=== PATIENT | male | born 1985 | race African-American/Black ===

== ENCOUNTER 2018-05-17 10:08 | Emergency (ER) | payer OTHER ==
[~2018-05-17] VITALS: Ht 180.3 cm; Wt 78.2 kg
[2018-05-17 10:24] VITALS: BP 129/73
== END 2018-05-17 12:29 | disposition home or self-care (01) ==
LOC: ED 10:08
DX: J02.9 Acute pharyngitis, unspecified (principal)

== ENCOUNTER → 2020-07-14 | Outpatient (CLI) | payer OTHER | END | disposition home or self-care (01) | LOC: RD 11:01 | PROVIDERS: ATTEND Preventive Medicine Preventive Medicine/Occupational Environmental Medicine | DX: M25.572 Pain in left ankle and joints of left foot (principal); M25.571 Pain in right ankle and joints of right foot ==

== ENCOUNTER → 2020-07-27 | Outpatient (CLI) | payer OTHER | END | disposition home or self-care (01) | LOC: RD 15:39 | PROVIDERS: ATTEND Preventive Medicine Preventive Medicine/Occupational Environmental Medicine | DX: M54.5 Low back pain (principal) ==